=== PATIENT | male | born 1950 | race Caucasian/White ===

== ENCOUNTER → 2020-01-26 12:01 | Outpatient (CLI) | payer MEDICARE, OTHER, SELFPAY ==
[2020-01-26 13:11] LABS: Add Manual Diff / Slide Review NO; Basophils Absolute Auto 0 /uL (0-100); Basophils Percent Auto 0.7 % (0-2); Eosinophils Absolute Auto 100 /uL (0-450); Hematocrit 44.7 % (41-53); Hemoglobin 15.4 g/dL (13.5-17.5); Lymphocytes Absolute Auto 1300 /uL (1100-4500); Lymphocytes Percent Auto 21.6 % (25-40); Mean Corpuscular HGB Conc 34.5 % (30-36); Mean Corpuscular Hemoglobin 30.5 PG (26-34); Mean Corpuscular Volume 88.4 fL (80-100); Monocytes Absolute Auto 400 /uL (0-900); Monocytes Percent Auto 6.2 % (3-14); Neutrophils Absolute Auto 4300 /uL (1500-7000); Neutrophils Percent Auto 70.5 % (50-75); Platelet Count 247 X10^3/uL (150-400); Red Blood Cell Count 5.06 X10^6/uL (4.5-5.9); White Blood Cell Count 6.1 X10^3/uL (4.5-11.0)
== END ==
PROVIDERS: PCP Internal Medicine; Referring Provider Orthopaedic Surgery; Visit Provider Orthopaedic Surgery
DX: Z01.818 Encounter for other preprocedural examination (principal); Z01.812 Encounter for preprocedural laboratory examination
CPT/HCPCS: 36415; 85025; 93005

== ENCOUNTER 2020-01-27 09:49 | Day surgery (SDC) | payer MEDICARE, OTHER, SELFPAY ==
[2020-01-27] VITALS (12 sets, daily range): BP systolic 135–181; BP diastolic 81–99; PULSE 50–59; RESP 11–22; TEMP 36.6–36.7; O2SAT 94–99; BMI 25.7
--- NOTE | 2020-01-27 | DI.RAD.S_ITS ---
PROCEDURE: XR WRIST LT 2V INDICATIONS: ORIF LEFT WRIST TECHNIQUE: 2 intraoperative fluoroscopic views of the wrist were acquired. COMPARISON: [facility] Outside Film, RG, WRIST COMP MIN 3VW (LT), 01/21/2020, 23:01. [facility] Outside Film, RG, FOREARM 2VW (LT), 01/21/2020, 23:11. FINDINGS: ORIF of the distal radius and radial shaft. Hardware is in expected position. There is anatomic alignment. IMPRESSION: Expected appearance of the left radius ORIF. Dictated by: Cristobal Youssef M.D. on 01/27/2020 at 17:58 Approved by: Cristobal Youssef M.D. on 01/27/2020 at 18:00
--- NOTE | 2020-01-27 09:53 | SUR.PREOP ---
Pt not here at 0915, called at 0940, stated he thought arrival time was 0945.
--- NOTE | 2020-01-27 10:27 | PM.PREOP ---
Pre-operative Note Interval Note History & Physical reviewed/Exam performed by Physician: Yes Changes to H&P: No
--- NOTE | 2020-01-27 10:55 | SUR.OPER ---
Supine on padded OR bed, head on pillow, right arm secured on padded arm boards at <90 degrees abduction, left hand prepped on hand table legs uncrossed, safety belt at thigh, tape over blanket over lower legs.
[2020-01-27] MEDS: LACTATED RINGERS 1,000 ML 42 ML IV ×2 (11:15→16:01)
--- NOTE | 2020-01-27 11:17 | SUR.PREOP ---
Block start time [1049] . Monitoring initiated and maintained throughout procedure. Oxygen given per anesthesiologist instructions. Patient remained stable throughout procedure, no adverse reactions noted. Block end time [1104]. Pt refused pre-medication. Pt to OR in stable condition.
--- NOTE | 2020-01-27 16:01 | SUR.PREOP ---
Up with SBA to BR. Steady when up.
[2020-01-27] MEDS: CEFAZOLIN 2 GM/100 ML FROZ.PIGGY IV (16:15)
--- NOTE | 2020-01-27 16:47 | SUR.OPER ---
Supine on padded OR bed, head on pillow, right arm secured on padded arm board at <90 degrees abduction, left arm on padded OR hand table, legs uncrossed, safety belt at thigh.
[2020-01-27] MEDS: SODIUM CHLORIDE 0.9% 1,000 ML, GENTAMICIN 80 MG IRR (16:54)
[2020-01-27] MEDS: BUPIVACAINE 0.25% W/ EPI 30 ML VIAL INJ (16:55)
--- NOTE | 2020-01-27 18:06 | PM.OP.1 ---
Operative Date/Time/Diagnoses Date of procedure: 01/27/20 Time of procedure: 18:06 Pre-op diagnosis: left distal intraarticular radius fracture Post-op diagnosis: same Procedure & Clinicians Procedure: ORIF of left distal radius intra-articular fracture Same procedure as scheduled: Yes Indications: 70-year-old male with a displaced and angulated intra-articular left distal radius fracture that extended 9 cm proximally into the shaft. This felt that he would benefit from ORIF. Risks and benefits of surgery discussed appropriate consents obtained. Surgeon: Luis E Maldonado Click Yes if Unassisted: Yes Anesthesia Type: Peripheral nerve block Operative Notes Findings: none Closure Type: primary Specimen(s): none sent Prosthetic devices, grafts, tissues, transplants, or devices: Acumed distal radius fracture Estimated Blood Loss (mL): 10 Blood products transfused: none Tourniquet time (min): 51 Procedure in detail: The patient was brought to the operating room and intubated on the table. Time-out was performed. Attention was turned towards the well-marked left wrist. Preoperative antibiotics were given. The arm was prepped and draped in the standard sterile fashion. An Esmarch was used to exsanguinate the limb and the tourniquet was inflated. A 25 cm incision was made along the FCR course curving radially distally across the wrist crease. We sharply dissected through the FCR tendon sheath and retracted the tendon and then came down to the pronator quadratus. This was elevated off the distal radius. We gently split between the FCR and the distal aspect of the brachia radialis. The pronator and FDS were also exposed. Fracture was exposed. We needed to go further up and had released part of the pronator as well. At this point we had exposed well proximal to the fracture so that we could get good proximal fixation. The fracture itself was exposed and cleaned up with a curette. We then applied traction and rotation and reduced the fracture and confirmed under x-ray. Looking at the distal wrist we made sure that the intra-articular portion was reduced. We then took an Acumed volar plate. We had to add a long extension to be able to cover well past the fracture site. It was placed against the bone and slid up underneath the muscle and x-ray was taken to confirm positioning. One screw was placed through the shaft in the variable hole. This was checked under x-ray and tightened down. We then placed distal row screws in the distal fragment. We started along the ulnar column and then finished out in the styloid. We then went back and placed the final shaft screws in both the main distal plate as well as the extension plate. We had 4 screws proximal to the fracture and I did not feel we needed to dissect up further to put anymore in. The wrist was stressed and shucked under xray to make sure it was stable between the ulna and radius. Final x-rays were taken. The tourniquet was released. The wound was irrigated. The pronators were loosely reattached and the superficial and skin were closed. The patient was placed in a well-padded volar splint. They are extubated and brought to recovery with no complications. Complications: none Post-operative Condition: stable Disposition: PACU Plan for aftercare: Outpatient. Keep splint intact. In 2 weeks stitches can come out and he can be placed in a removable splint and start on OT.
[2020-01-27] MEDS: HYDROCODONE/ACET 5/325 TABLET 1 TAB PO (18:12)
[2020-01-27] MEDS: HYDROMORPHONE 2 MG INJ IV ×3 (18:18→18:42)
--- NOTE | 2020-01-27 18:25 | SUR.PHASEII ---
Patient arrived in phase II per Dr. Soto
--- NOTE | 2020-01-27 19:10 | SUR.PHASEII ---
Patient removed from PACU monitor. Dressing independently.
== END 2020-01-27 19:16 | disposition home or self-care (01) ==
PROVIDERS: Referring Provider Orthopaedic Surgery; Visit Provider Orthopaedic Surgery
PROC: (CPT 25609; principal; 2020-01-27 10:45)
DX: S52.572A Other intraarticular fracture of lower end of left radius, initial encounter for closed fracture (principal); W18.30XA Fall on same level, unspecified, initial encounter
CPT/HCPCS: 25609; 64415; 73100; 76000; J0690; J1170

== ENCOUNTER → 2021-04-20 11:50 | Outpatient (CLI) | payer MEDICARE, OTHER, SELFPAY ==
--- NOTE | 2021-04-20 | DI.MRI.S_ITS ---
PROCEDURE: MR SHOULDER RT WO CON INDICATIONS: Strain of muscle(s) and tendon(s) of the rotator c TECHNIQUE: Noncontrast oblique coronal T2 fast spin echo with fat saturation, oblique sagittal T1 spin echo and T2 fast spin echo with fat saturation, axial T1 spin echo and T2 fast spin echo with fat saturation through the shoulder. COMPARISON: [facility] [place], CR, XR SHOULDER 2+ VIEWS RIGHT, 04/10/2021, 14:00. FINDINGS: Rotator cuff: Large full-thickness tear of the supraspinatus and infraspinatus tendons is present. This measures approximately 4.5 cm in the AP dimension as seen on sagittal pulse sequences. This measures approximately 2.7 cm in the transverse/longitudinal dimension as seen on coronal pulse sequences. There is teres minor tendinopathy. Subscapularis tendinopathy and thickening also present, with partial thickness articular and bursal sided tear tear. No definite rotator cuff muscle atrophy although there is diffuse fatty infiltration. Bones and bursae: No bone marrow contusions or fractures. Moderate acromioclavicular joint degeneration. Moderate glenohumeral osteoarthritis Acromion demonstrates conventional anatomy, without an os acromiale. Large joint effusion. Capsule and soft tissues: Labrum: Circumferential irregularity of the labrum, although no discrete intrasubstance fluid signal intensity. This suggests chronic macerated/degenerative tear. Evaluation limited by severe motion artifact.. Biceps tendon: Intra-articular segment of the long head biceps tendon not well seen suggestive of rupture Rotator interval: Near complete obliteration of the subcoracoid fat signal intensity. Coracohumeral ligament: Probably intact although not well seen suggestive of prior remote injury. IMPRESSION: Full-thickness rotator cuff tear as above. Large joint effusion Poorly defined, circumferential tear of the labrum which is likely chronic/degenerative. Rupture of the long head biceps tendon. Dictated by: Sonido Crisostomo M.D. on 04/20/2021 at 12:38 Approved by: Sonido Crisostomo M.D. on 04/20/2021 at 12:45
== END ==
PROVIDERS: PCP Internal Medicine; Referring Provider Orthopaedic Surgery; Visit Provider Orthopaedic Surgery
DX: S46.011A Strain of muscle(s) and tendon(s) of the rotator cuff of right shoulder, initial encounter (principal)
CPT/HCPCS: 73221

== ENCOUNTER 2021-04-20 12:51 | Emergency (ER) | payer MEDICARE, OTHER, SELFPAY ==
[2021-04-20 12:55] VITALS: BP 141/101; PULSE 80; RESP 14; TEMP 36.7; O2SAT 99
[2021-04-20 13:29] VITALS: BP 132/76; PULSE 65; RESP 16; O2SAT 97
--- NOTE | 2021-04-20 19:05 | ED_ITS ---
HPI - Head Injury General Chief complaint: Head Injury Stated complaint: fall/hit head last night Time Seen by Provider: 04/20/21 13:14 Source: patient Mode of arrival: Ambulatory Limitations: no limitations History of Present Illness HPI Narrative: 71-year-old gentle with no significant medical history was taking his garbage out yesterday slipped on a carpet fell and had a slight injury to his head. He also leann his right shoulder that has a chronic injury already and has mild strain to his left knee. He was able to get up without any difficulty. He is having less pain today. His was very concerned about the head injury and wanted him to be further evaluated. Related Data Home Medications Medication Instructions Recorded Confirmed finasteride 5 mg PO DAILY 04/20/21 04/20/21 Allergies Allergy/AdvReac Type Severity Reaction Status Date / Time No Known Drug Allergies Allergy Verified 04/20/21 12:57 Review of Systems Review of Systems Narrative: Pertinent positive and negative findings as per HPI Remainder of review of systems is otherwise unremarkable for Constitutional: Fevers, chills, weakness ENT: No sore throat, neck pain, ear pain CV: Chest pain, palpitations, Respiratory: Cough, wheeze, dyspnea GI: Nausea, vomiting, diarrhea, : Dysuria, hematuria, Patient History Medical History Aortic aneurysm Foot drop, right Weakness of both hands Social History household members: spouse Smoking Status: Never smoker alcohol intake: never Smoking Status: Never smoker alcohol intake frequency: 0-2 drinks per day Substance Use Type: does not use Exam Narrative Exam Narrative: General: Alert appropriate in no acute distress HEENT: Head is atraumatic, normocephalic. He has no tenderness to palpation. Funduscopic exam is unremarkable bilaterally. Extraocular eye movement is intact and pupils are equal bilaterally. He has no cervical spine tenderness Respiratory: Able to speak in full sentences, no obvious respiratory distress Skin: No obvious rashes, warm and dry Neurologic: Grossly intact no obvious asymmetries or abnormalities Psych: appropriate insight and affect, cooperative extremity: Minor tenderness to the right anterior shoulder with full range of motion. No effusion no abrasion. Minor tenderness to the left knee without effusion and full range of motion is unrestricted. Initial Vital Signs Initial Vital Signs: Vital Signs Temperature 98.1 F 04/20/21 12:55 Pulse Rate 80 04/20/21 12:55 Respiratory Rate 14 04/20/21 12:55 Blood Pressure 141/101 H 04/20/21 12:55 Pulse Oximetry 99 04/20/21 12:55 Course Vital Signs Vital signs: Vital Signs - 8 hr 04/20/21 12:55 04/20/21 13:29 Temperature 98.1 F Pulse Rate 80 65 Respiratory Rate 14 16 Blood Pressure 141/101 H 132/76 Pulse Oximetry 99 97 MDM - Head Injury MDM Narrative Medical decision making narrative: 71-year-old gentleman with minor mechanical fall and minor musculoskeletal injuries without evidence of significant head contusion or concussion. Reassurance is given. He will follow-up with his orthopedic surgeon regarding the right shoulder pain that had been a pre- existing problem. At this time he is safe for home discharge Discharge Plan Departure Patient Disposition: Home Clinical Impression: Fall Qualifiers: Encounter type: initial encounter Qualified Code(s): W19.XXXA - Unspecified fall, initial encounter Contusion of head Qualifiers: Encounter type: initial encounter Contusion of head detail: unspecified part of head Qualified Code(s): S00.93XA - Contusion of unspecified part of head, initial encounter Instructions: DI for Closed Head Injury Activity Restrictions/Additional Instructions: Thank you for coming in today On your physical exam, there is no evidence of significant concussion, bleeding in your brain, or other concerning head injuries. I suspect that your knee is mildly strained from the fall and you may have further injured your chronically injured right shoulder. I am glad you have already scheduled appointment with your orthopedic surgeon. At this time, there is no additional workup or imaging studies that need to be done with your head. It is safe for you to drive I wish you the best Prescriptions: No Action finasteride 5 mg tablet 5 mg PO DAILY RF: 0 Referrals: Jesse Clancy MD [Primary Care Provider] -
== END 2021-04-20 13:30 | disposition home or self-care (01) ==
PROVIDERS: Emergency Provider Emergency Medicine; PCP Internal Medicine
DX: S00.93XA Contusion of unspecified part of head, initial encounter (principal); S46.011A Strain of muscle(s) and tendon(s) of the rotator cuff of right shoulder, initial encounter; W01.0XXA Fall on same level from slipping, tripping and stumbling without subsequent striking against object, initial encounter
CPT/HCPCS: 73221; 99281; 99282

== ENCOUNTER → 2022-12-23 06:47 | Outpatient (CLI) | payer MEDICARE, OTHER, SELFPAY ==
--- NOTE | 2022-12-23 | DI.ECHO.S_ITS ---
[facility] +---------+ : : [address] : : : : [id number] : : : : Phone: [phone]+ Echocardiogram Report + + :Name: MONI DAMIAN Study Date: 12/23/2022 Height: 71 in : :[facility] ReadingLocation: Weight: 185 lb : : Gender: Male BSA: 2.0 m2 : :: 1950 Age: 72 yrs BP: 128/75 mmHg: :Reason For Study: ATRIAL FIBRILLATION : :Ordering Physician: ANANTH, : :RACHEL LEON MD Performed By: Kavita Obregon : :Referring: RACHEL WADSWORTH MD : + + Interpretation Summary 1) Normal left ventricular thickness, size, wall motion, and systolic function (EF 55-60%). 2) Normal right ventricular size with mildly reduced function. 3) The left atrium is severely dilated. 4) No significant valvular abnormalities. 5) The aortic root is moderately dilated at 4.4cm. 6) No prior Echo available for comparison. Procedure: A two-dimensional transthoracic echocardiogram with color flow and Doppler was performed. The study quality was technically adequate. There is no prior echocardiogram noted for this patient. The patient was in atrial fibrillation with heart rates between 64-75 bpm during the exam. Left Ventricle: The left ventricle is normal in size and wall thickness. The ejection fraction is estimated to be 55-60%. Left ventricular systolic function appears normal without focal wall motion abnormalities. Diastolic function could not be accurately assessed due to atrial fibrillation. Right Ventricle: The right ventricle is normal size. Right ventricular systolic function is mildly reduced. Atria: The left atrium is severely dilated. The right atrium is normal in size. There is no Doppler evidence for an interatrial shunt. Mitral Valve: There is mild mitral annular calcification. The mitral valve leaflets appear mildly thickened, but open well. There is trace mitral regurgitation. Aortic Valve: The aortic valve is trileaflet. The aortic valve opens well. There is no aortic valve stenosis. There is trace aortic regurgitation. Tricuspid Valve: The tricuspid valve is normal in structure and function. There is mild tricuspid regurgitation. The right ventricular systolic pressure is estimated to be at least 21 mmHg based on an estimated right atrial pressure of 3 mm Hg. Pulmonic Valve: The pulmonic valve leaflets are thin and pliable; valve motion is normal. There is mild pulmonic regurgitation. Great Vessels: The aortic root is moderately dilated. The ascending aorta is mild-moderately enlarged. The IVC is of normal diameter and collapses greater than 50% with a sniff. This suggests a low right atrial pressure of 3 mm Hg. Pericardium/ Pleura There is no pericardial effusion. There is no pleural effusion. MMode/2D Measurements & Calculations LVIDd: 5.6 cm LVOT diam: 2.1 cm LVIDs: 3.6 cm Ao root diam: 4.4 cm FS: 35.3 % asc Aorta Diam: 4.2 cm IVSd: 1.0 cm LVPWd: 0.80 cm LV darnell. diameter/BSA (cm/m^2): 2.7 LV sys. diameter/BSA (cm/m^2): 1.8 LA A2 area: 27.6 cm2 RA long axis: 7.0 cm LA A4 area: 36.7 cm2 RA area: 23.2 cm2 LA length (vol): 6.8 cm RA vol: 65.7 ml LA vol: 126.5 ml RA : 32.2 ml/m2 LA vol index: 62.0 ml/m2 IVC diam: 0.73 cm RVD1 (basal): 3.2 cm RVD2 (mid): 2.9 cm TAPSE: 1.5 cm Doppler Measurements & Calculations Ao V2 max: 105.7 cm/sec LVOT Max Evelio: 91.4 cm/sec Ao V2 mean: 78.2 cm/sec LV V1 max P.4 mmHg Ao max P.5 mmHg LV V1 VTI: 18.3 cm Ao mean P.7 mmHg CLINT(I,D): 3.2 cm2 Ao V2 VTI: 20.5 cm CLINT(V,D): 3.1 cm2 sev ratio: 0.89 CLINT indexed to BSA (cm^2/m^2): 1.5 MV E max evelio: 94.0 cm/sec TR max evelio: 210.7 cm/sec MV A max evelio: 2.8 cm/sec TR max P.8 mmHg MV E/A: 33.7 PA V2 max: 87.5 cm/sec Med Peak E' Evelio: 8.3 cm/sec PA V2 mean: 63.3 cm/sec E/E' med: 11.3 PA mean P.7 mmHg Lat Peak E' Evelio: 14.5 cm/sec PA pr(Accel): 32.8 mmHg E/E' lat: 6.5 E/e' average: 8.9 MV dec time: 0.14 sec SV(LVOT): 64.8 ml Reading Physician:03:00 PM
== END ==
PROVIDERS: PCP Internal Medicine; Referring Provider Internal Medicine Cardiovascular Disease; Visit Provider Internal Medicine Cardiovascular Disease
DX: I08.1 Rheumatic disorders of both mitral and tricuspid valves (principal); I48.0 Paroxysmal atrial fibrillation; I77.89 Other specified disorders of arteries and arterioles; I77.810 Thoracic aortic ectasia
CPT/HCPCS: 93306